=== PATIENT | female | born 1970 | race Caucasian/White ===

== ENCOUNTER 2020-10-30 19:38 | Inpatient (IN) | payer MEDICARE ==
[~2020-10-30] VITALS: Ht 149.9 cm; Wt 68.4 kg
[2020-10-30] MEDS ORDERED: MAALOX 30 ML SUSP *UDC PO PRN (21:10)
[2020-10-30] MEDS ORDERED: MOM 30ML SUSPENSION UDC PO PRN (21:10)
--- NOTE | 2020-10-30 21:21 | CR.PDOC ---
General Date of Consultation: Oct 30, 2020 Consultation REASON FOR CONSULTATION/CHIEF COMPLAINT: Transfer from [facility] - Left ankle bimalleolar fracture dislocation HISTORY OF PRESENT ILLNESS: pt was hiking a trail around 1000 this am. Slipped off a log and fell to the ground. Pain and inability to WB. Obvious deformity to ankle with no broken skin. Reduced under concious sedation and splinted around 1600. Transfer to [facility] accepted. Pt arrived around 194. Seen in ED for evaluation. Denies any tingling, numbness or paresthesias. Pain well controlled. ALLERGIES: Please see below. HOME MEDICATIONS: Please see below. PAST MEDICAL HISTORY: 1. Osteopenia 2. HTN 3. R clavicle # non op REVIEW OF SYSTEMS: CONSTITUTIONAL: Denies any complaints or concerns, Aside from ankle injury PHYSICAL EXAMINATION: VITAL SIGNS: Please see below. GENERAL APPEARANCE: A&O, NAD EXTREMITIES: Splinted L ankle and elevated on pillow NEUROLOGICAL: moving left forefoot and toes. sensation grossly intact to 1st webspace Vascular: palpable Left DP pulse, cap refill less than 3 secs LABORATORY DATA: Please see below. Xray imaging: Pre and post reduction films on disc independently reviewed by myself, today. Bimalleolar fracture dislocation with adequate reduction and splinting. ASSESSMENT/PLAN: 1. Patient has an unstable bimalleolar fracture dislocation of the left ankle, appropriately reduced and splinted. Will require ORIF. Discussed risks and benefits of the surgery at length, as documented on the signed informed consent. Dr. Zambrano, who is professional development director this weekend is aware of the patient and will plan for ORIF L ankle tomorrow. Pt will be NPO at midnight. Hospitalist service consulted for admission and management, by ED. Consent for surgery left at OR desk. Pt aware and in agreement with treatment plan. Vital Signs/I&O Vital Signs Date Time Temp Pulse Resp B/P (MAP) Pulse Ox O2 Delivery O2 Flow Rate FiO2 10/30/20 20:17 98.0 DALE PONCE MD Oct 30, 2020 21:21
--- NOTE | 2020-10-30 21:21 | HPEPDOC ---
[facility] Medical History & Physical Date of Admission Oct 30, 2020 Date of Service: Oct 30, 2020 Other Provider Attending Physician: INO AGUILERA MD History and Physical TIME OF SERVICE: 850pm CHIEF COMPLAINT: left ankle pain HISTORY OF PRESENT ILLNESS: , a 50 yr old F, had been backpacking in the area. Earlier on today she had a fall off of a log onto her left foot and landed on a patch of dirt that was soft. As soon as she landed heard a snap and knew that her ankle was broken; she initially presented to [facility] w c/o left ankle pain, was diagnosed with a left bimalleolar fracture and was given pain meds prior to having cast placed around her left ankle. REVIEW OF SYSTEMS: see HPI PAST MEDICAL/ SURGICAL HISTORY: Essential HTN, osteoporosis, menopause (47 yrs of age) SOCIAL HISTORY: she doesnt smoke, drinks alcohol about 3 times a week and doesnt use recreational drugs, she lives in [place] FAMILY HISTORY: HTN, DM, her mother had osteoporosis ALLERGIES: Please see below. HOME MEDICATIONS: Please see below. PHYSICAL EXAMINATION: Vital Signs Date Time Temp Pulse Resp B/P (MAP) Pulse Ox O2 Delivery O2 Flow Rate FiO2 10/30/20 20:17 98.0 . GENERAL APPEARANCE: well-nourished and developed/ NAD HEENT: EOMI/ MMM&P CARDIOVASCULAR: radial pulses intact MUSCULOSKELETAL: NCAT / left ankle wrapped in cast/ sensation in toes on left foot intact INTEGUMENT: toes at the left foot are pink and well perfused NEUROLOGICAL: CN 2-12 grossly intact / speech not dysarthric PSYCHIATRIC: A&Ox 3/ able to understand and follow all commands LABORATORY DATA: pending IMAGING: Xray of left foot showed bi-malleolar fx MICROBIOLOGY: COVID pending ASSESSMENT: is a 50 yr old w HTN, and osteoporosis who was transferred from [facility] for surgical management of a left bi-malleolar fx. PLAN: 1 Left Bimalleolar fracture 2/2 mechanical fall Her RCRI score is 0 therefore she will not need any additional testing prior to proceeding with surgery. Plan: admit to [facility] / NPO after midnight w IVF for surgery possibly tomorrow / Ortho consult (Dr. Zambrano) / pain control w morphine 2 Osteoporosis She begun Prolia in December of last year Plan: Ca++ w vitamin D/ c/w Prolia as scheduled 3 Essential HTN Plan: hold lisinopril to reduce the risk of jefferson-operative hypotension (this medication can be resumed on POD #) /in the meanwhile we will start low dose amlodipine for her HTN DVT Px w SCDs Dispo: ARU vs Rehab facility in [place] after at least 2 midnights stay A-FIB/CHADSVASC A-FIB History Current/History of A-Fib/PAF?: No Current PO Anticoag Therapy: No INO AGUILERA MD Oct 30, 2020 21:21
[2020-10-30] MEDS ORDERED: OYST1TAB PO (21:39)
[2020-10-30] MEDS ORDERED: D31000TA2 PO (21:39)
[2020-10-30] MEDS ORDERED: ALEN70TA82 PO (21:39)
[2020-10-30] MEDS ORDERED: LISI10TA22 PO (21:39)
[2020-10-30 22:04] LABS: HEMATOCRIT 36.7 % (36.0-47.0); HEMOGLOBIN 11.9 g/dl (12.0-15.5); MEAN CORPUSCULAR HEMOGLOBIN 29.6 pg (27.0-33.0); MEAN CORPUSCULAR HGB CONC 32.4 g/dl (32.0-36.5); MEAN CORPUSCULAR VOLUME 91.3 fl (80.0-96.0); PLATELET COUNT, AUTOMATED 233 10^3/uL (150-450); RED BLOOD COUNT 4.02 10^6/uL (4.00-5.40); WHITE BLOOD COUNT 8.1 10^3/uL (4.0-10.0)
[2020-10-30] MEDS: ACETAMINOPHEN TAB 650MG DOSE (2X325MG) PO PRN (22:16)
[2020-10-30 22:25] LABS: BLOOD UREA NITROGEN 13 MG/DL (7-18); CALCIUM LEVEL 8.5 MG/DL (8.5-10.1); CARBON DIOXIDE LEVEL 25 MEQ/L (21-32); CHLORIDE LEVEL 108 MEQ/L (98-107); CREATININE FOR GFR 0.89 MG/DL (0.55-1.30); GLOMERULAR FILTRATION RATE > 60.0 (>51); GLUCOSE, FASTING 123 MG/DL (70-100); POTASSIUM SERUM 3.6 MEQ/L (3.5-5.1); SODIUM LEVEL 141 MEQ/L (136-145)
[2020-10-30 22:55] VITALS: BP 114/72
[2020-10-30] MEDS: MORPHINE 2 MG/ML 1ML VIAL (J2270) IV PRN (23:25)
[2020-10-31] MEDS ORDERED: D5W/0.9% SODIUM CHLORIDE 1,000 ML IV SCH
[2020-10-31] MEDS: MORPHINE 2 MG/ML 1ML VIAL (J2270) IV PRN (01:34)
[2020-10-31 06:00] VITALS: BP 101/55
[2020-10-31 07:22] LABS: HEMATOCRIT 36.9 % (36.0-47.0); HEMOGLOBIN 11.9 g/dl (12.0-15.5); MEAN CORPUSCULAR HEMOGLOBIN 30.1 pg (27.0-33.0); MEAN CORPUSCULAR HGB CONC 32.2 g/dl (32.0-36.5); MEAN CORPUSCULAR VOLUME 93.2 fl (80.0-96.0); PLATELET COUNT, AUTOMATED 207 10^3/uL (150-450); RED BLOOD COUNT 3.96 10^6/uL (4.00-5.40)
[2020-10-31 07:50] LABS: BLOOD UREA NITROGEN 12 MG/DL (7-18); CALCIUM LEVEL 8.2 MG/DL (8.5-10.1); CARBON DIOXIDE LEVEL 29 MEQ/L (21-32); CHLORIDE LEVEL 110 MEQ/L (98-107); CREATININE FOR GFR 0.69 MG/DL (0.55-1.30); GLOMERULAR FILTRATION RATE > 60.0 (>51); GLUCOSE, FASTING 88 MG/DL (70-100); POTASSIUM SERUM 4.2 MEQ/L (3.5-5.1); SODIUM LEVEL 142 MEQ/L (136-145)
[2020-10-31] MEDS: ACETAMINOPHEN TAB 650MG DOSE (2X325MG) PO PRN ×3 (08:43→22:08)
[2020-10-31] MEDS: CALCIUM/VITAMIN D 500 MG TAB PO SCH (08:43)
[2020-10-31 14:00] VITALS: BP 112/76
--- NOTE | 2020-10-31 14:03 | IPNPDOC ---
Text Note Date of Service The patient was seen on 10/31/20. NOTE Hospitalist Progress Note Subjective: Patient is lying in a hospital bed and landed the room. She is awake and alert, she is a good historian. Her leg is propped up and still in the splint. It appears that the OR was full today, therefore it sounds like the plan is to take her to the OR tomorrow instead. She therefore has a regular diet for today, and will be made nothing by mouth after midnight. She does not have any other questions, and the remainder of her review of systems negative. Objective: General: Awake, alert, oriented 3. Not in any acute distress. HEENT: Head normocephalic, atraumatic, sclera are nonicteric. Hearing is grossly intact to conversation. Respiratory: Clear to auscultation bilaterally with no wheezes, rales, or rhonchi. Cardiovascular: Regular rate and rhythm, with no rubs, gallops, or murmur. Abdomen: Soft, nontender, nondistended, no hepatosplenomegaly appreciated. Bowel sounds present. Extremities: 2+ pulses in the radial and dorsalis pedis bilaterally. No evidence of clubbing or cyanosis. Assessment: Left bimalleolar fracture secondary to mechanical fall Osteoporosis Essential hypertension DVT prophylaxis with sequentials Plan: Management of left ankle fracture per recommendations from orthopedic surgery team. It sounds as though she'll be going to the OR tomorrow depending on their schedule. Otherwise, home dose of KAROL inhibitor is being held and hypertension as being controlled with amlodipine. May resume KAROL inhibitor (and d/c amlodipine) after surgery when she is hemodynamically stable Dispo: ARU vs Rehab facililty after d/c is likely VS,Cooper, I+O VS, Cooper, I+O Laboratory Tests 10/30/20 21:50 10/31/20 06:44 Vital Signs Date Time Temp Pulse Resp B/P (MAP) Pulse Ox O2 Delivery O2 Flow Rate FiO2 10/31/20 06:00 98.3 60 18 101/55 (70) 98 Room Air I&O- Last 24 Hours up to 6 AM 10/31/20 06:00 Intake Total 240 ml Output Total 500 ml Balance -260 ml JESSICA TONEY DO Oct 31, 2020 14:03
--- NOTE | 2020-10-31 14:40 | REP ---
INDICATION: previous L ankle XR cancelled - NOT ACCEPTABLE. COMPARISON: No comparison radiographs are available.. TECHNIQUE: Four views of the left ankle are obtained through overlying cast material. FINDINGS: Four views of the left ankle obtained through overlying cast material demonstrate a transversely oriented somewhat diastatic medial malleolar fracture and an obliquely oriented minimally disc fragments fracture of the distal fibular metaphysis. Ankle mortise is widened medially. No other fracture seen. IMPRESSION: Bimalleolar fracture at the ankle with some medial widening of the ankle mortise as above. X-rays through overlying cast material. No comparison studies available. <Electronically signed by Herminio Sharma > 10/31/20 [id number]
[2020-10-31 21:34] LABS: INR 0.93; PROTHROMBIN TIME 12.7 SECONDS (12.5-14.3)
[2020-10-31 22:00] VITALS: BP 115/73
[2020-11-01] VITALS (8 sets, daily range): BP systolic 100–145; BP diastolic 63–81
[2020-11-01] MEDS: D5W/0.9% SODIUM CHLORIDE 1,000 ML IV SCH ×2 (00:08→17:59)
[2020-11-01] MEDS ORDERED: RAMELTEON 8 MG TAB (ROZEREM) PO PRN (04:00)
[2020-11-01] MEDS: ACETAMINOPHEN TAB 650MG DOSE (2X325MG) PO PRN ×2 (04:24→20:20)
[2020-11-01] MEDS ORDERED: fentaNYL 100 MCG/2 ML INJECTION (J3010) IV PRN ×2 (07:01→12:40)
[2020-11-01] MEDS ORDERED: MIDAZOLAM INJ 2MG/2ML VIAL (J2250 PER 1MG) IV PRN (07:01)
[2020-11-01] MEDS ORDERED: ROPIvacaine 0.5% 30ML INJECTION (J2795 PER 1MG) XX ONE (08:15)
[2020-11-01] MEDS ORDERED: dexameTHASONE 10MG/1ML VIAL PRES.FREE (J1100 PER 1MG) XX ONE (08:15)
[2020-11-01] MEDS ORDERED: LIDOCAINE 1% MDV 20ML VIAL XX ONE (08:15)
[2020-11-01] MEDS: CALCIUM/VITAMIN D 500 MG TAB PO SCH (09:00)
[2020-11-01] MEDS ORDERED: ceFAZolin 2 GM/D5W 50 ML IV BAG (J0690 PER 500MG) As Ordered ONE (09:39)
[2020-11-01] MEDS ORDERED: HYDROmorphone HCL 2 MG/ML 1ML VIAL (J1170) As Ordered ONE (09:57)
[2020-11-01] MEDS ORDERED: MIDAZOLAM INJ 2MG/2ML VIAL (J2250 PER 1MG) As Ordered ONE (09:57)
[2020-11-01] MEDS ORDERED: fentaNYL 100 MCG/2 ML INJECTION (J3010) As Ordered ONE (09:57)
[2020-11-01] MEDS ORDERED: dexameTHASONE 4 MG/ML 1ML VIAL (J1100 PER 1MG) As Ordered ONE (09:59)
[2020-11-01] MEDS ORDERED: ONDANSETRON 4MG/2ML VIAL As Ordered ONE (09:59)
[2020-11-01] MEDS ORDERED: ACETAMINOPHEN 1000MG 100ML IV BTL (OFIRMEV) (J0131 PER 10MG) As Ordered ONE (09:59)
[2020-11-01] MEDS ORDERED: ROCURONIUM BROMIDE 50 MG/5 ML VIAL As Ordered ONE ×2 (09:59→11:03)
[2020-11-01] MEDS ORDERED: propofoL 200 MG/20 ML VIAL As Ordered ONE (09:59)
[2020-11-01] MEDS ORDERED: LIDOCAINE 2% 100MG/5ML SDV (FOR ANES.) As Ordered ONE (09:59)
[2020-11-01] MEDS ORDERED: SUGAMMADEX SODIUM 500 MG/5 ML VIAL (BRIDION) As Ordered ONE ×2 (10:10→10:26)
[2020-11-01] MEDS ORDERED: ePHEDrine SULFATE 25 MG/5 ML(5MG/ML) SYRINGE As Ordered ONE (10:20)
[2020-11-01] MEDS ORDERED: ONDANSETRON 4MG/2ML VIAL IV PRN (12:40)
[2020-11-01] MEDS ORDERED: HYDROMORPHONE HCL 0.5 MG/ 0.5 ML SYRINGE (J1170 PER 1) IV PRN (12:40)
[2020-11-01] MEDS ORDERED: oxyCODONE 5MG TAB PO PRN (12:40)
[2020-11-01] MEDS ORDERED: LR 1,000 ML IV SCH (12:40)
--- NOTE | 2020-11-01 12:54 | REP ---
INDICATION: L ankle fracture. COMPARISON: Comparison ankle radiographs are from October 31, 2020. Bimalleolar left ankle fracture.. TECHNIQUE: Eleven views. 159.5 seconds of fluoroscopy time is reported. FINDINGS: A sequence of 11 last image hold fluoroscopically obtained spot radiographs of the ankle document open reduction internal fixation of bimalleolar fracture. IMPRESSION: Procedural imaging. <Electronically signed by Herminio Sharma > 11/01/20 1420
--- NOTE | 2020-11-01 14:31 | RO ---
OPERATIVE NOTE DATE OF OPERATION: 11/01/2020 TIME: 10 a.m. PREOPERATIVE DIAGNOSIS: Left bimalleolar ankle fracture, closed with syndesmotic disruption. POSTOPERATIVE DIAGNOSIS: Left bimalleolar ankle fracture, closed with syndesmotic disruption. NAME OF OPERATION: Left ankle open reduction and internal fixation with syndesmotic fixation. SURGEON: Ren Zambrano MD COLOR ADVISER: None. SUPERVISING ATTENDING: Ren Zambrano MD FINDINGS: Left ankle fracture which is bimalleolar in nature closed with sydesmotic disruption. INDICATIONS: This was a 50-year-old female who was in the local area [place]. She is originally from [place]. She sustained a ground level fall and a left ankle fracture dislocation which was closed. She had a left closed bimalleolar ankle fracture involving the medial malleolus as well as the distal fibula with syndesmotic disruption. She presented to the [facility]. She was a transfer from [place], [place]. She was indicated for a left ankle open reduction and internal fixation with syndesmotic fixation. She underwent the aforementioned surgery. ANESTHESIA: GETA. TOURNIQUET TIME: 103 minutes. ESTIMATED BLOOD LOSS: 75 mL. IV FLUIDS: Please see anesthesia report. IV ANTIBIOTICS: Please see anesthesia report. IMPLANTS: Synthes. CULTURES: None. SPECIMENS: None. DESCRIPTION OF PROCEDURE: The patient was met in the preoperative holding area where the patient's operative extremity was signed, the patient's consent was confirmed to be correct, and the patient's identity was confirmed to be correct. The patient was then transported to the operating theater where she was placed supine on a regular surgical flat-top bed with the radiolucent extension. A safety strap secured the patient to the bed.. All bony prominences were well padded. The contralateral lower extremity had SCDs placed. A timeout was called which confirmed the correct patient, correct operative extremity and correct consent. All staff were in agreement. The patient was then draped in the usual sterile fashion. Prior to the case, we obtained fluoroscopic imaging to ensure correct surgical incision overlying the distal fibular fracture. We then inflated the tourniquet to 250 mmHg. We began the procedure by incising the skin overlying the distal fibula using a scalpel. After incising the skin, I used careful dissection in order to ensure we did not damage the superficial peroneal nerve. I then dissected down to the periosteum of the distal fibula and elevated this with a scalpel. I identified the fracture which was then cleaned using a scalpel and a hemostat. After we cleaned the fracture, we were able to provide provisional reduction using a [id number] bone-reducing clamp. I then placed two 2.7 mm lag screws by technique orthogonal to the fracture site. We then removed the clamp and placed a 4-hole distal fibular locking plate in position. We ensured with fluoroscopy that now we were satisfied with our fracture reduction and provisional fixation. I then used a cortical screw in order to suck the plate to the bone distally followed by three additional locking screws. In total we had three locking and one cortical screw in the distal fibular plate. I then turned my attention to the proximal aspect of the plate and placed three 3.5 mm cortical screws in order to secure the plate to the bone. The plate would be used in neutralization mode in order to protect the lag screws which were providing absolute stability across the fracture. We then turned our attention to the medial malleolus and made a one inch incision using a scalpel, identified a traversing vein which was then protected. I used a scalpel to elevate the periosteum overlying the fracture. I identified the medial malleolar fracture which was then cleaned with a scalpel and hemostat. After the fracture was cleaned, it was then reduced using [id number] bone-reducing clamp. Using fluoroscopy, I placed two threaded guide pins orthogonal to the fracture site starting at the tip of the medial malleolus and orthogonal to the fracture site. I checked fluoroscopy in AP and lateral views to make sure that I was satisfied with the placement of the guide pins. I then predrilled the posterior of the two parallel threaded guide pins. I placed a 50 mm partially threaded 4.0 mm cancellous screw. I then placed a second anterior rotational screw anterior to the first yet parallel on the lateral views and superimposed on the AP view. I then took fluoroscopy to ensure that I was satisfied with the medial malleolar fracture reduction as well as the two screw implants. I then turned my attention to the AP view of the fracture and turned our attention to the syndesmosis which was disrupted with a stress view. We then placed a suspensory fixation using TightRope suspension. I placed a threaded guide pin in the most distal of the 4-hole plate. After placing the set screw which was tetracortical in nature through both the fibula and tibia, I ensured with fluoroscopy that I was satisfied with its position. We then overdrilled the threaded guide pin, placed an Arthrex TightRope button which was tetracortical in nature and was seated nicely on the medial aspect of the tibia. I then tightened the TightRope with manual compression across the tibiofibular joint/syndesmosis. I tightened this appropriately which reduced our syndesmosis. At this point in time, I tied a safety knot over the TightRope suspension. The loose sutures were then cut. At this point in time, I took final fluoroscopic imaging of the patient's left ankle to include an AP, mortise and lateral view of the ankle. I was satisfied with the implant placement as well as the fracture reduction. I copiously irrigated both surgical sites. I closed the periosteum over the distal fibular plate using 2-0 Vicryl and closed the dermal layer using 2-0 Vicryl. I closed the skin using a running 3-0 nylon stitch. I closed the medial malleolar incision using 2-0 for the dermal layer and a running 3-0 nylon stitch. I then placed Xeroform, 4x4s, Webril and the patient's left ankle was placed in a well-padded L and U splint. The patient was extubated without complication and transported to the postanesthesia care unit. The patient will be nonweightbearing to the left lower extremity for 6-8 weeks. She will return to our clinic or an orthopedic clinic in [place] in two weeks for a postoperative wound check as well as L and U splint removal. She will be transitioned to a Cam boot at that point in time and remain nonweightbearing for an additional 4-6 weeks. She will be given postoperative pain medication by her hospitalist team. She will follow the left ankle open reduction and internal fixation rehabilitative protocol. The patient's family will be notified of the aforementioned proceedings.
[2020-11-01] MEDS ORDERED: traMADol 50 MG TAB PO PRN (17:45)
--- NOTE | 2020-11-01 17:48 | IPNPDOC ---
Text Note Date of Service The patient was seen on 11/01/20. NOTE Hospitalist Progress Note Subjective: Patient has now returned from the OR. Her foot is splinted and wrapped. She has no pain at this time, but the local anesthetic is still in effect. She has questions about PT & follow-up, but otherwise no other concerns at this time. Objective: General: Awake, alert, oriented 3. Not in any acute distress. HEENT: Head normocephalic, atraumatic, sclera are nonicteric. Hearing is grossly intact to conversation. Respiratory: Clear to auscultation bilaterally with no wheezes, rales, or rhon chi. Cardiovascular: Regular rate and rhythm, with no rubs, gallops, or murmur. Abdomen: Soft, nontender, nondistended, no hepatosplenomegaly appreciated. Bowel sounds present. Extremities: 2+ pulses in the radial. No evidence of clubbing or cyanosis. Left leg splinted and bandaged. Assessment: Left bimalleolar fracture secondary to mechanical fall Osteoporosis Essential hypertension DVT prophylaxis with sequentials Plan: - Resume home dose of KAROL inhibitor - Start regular diet - Pain control with tylenol (mild), tramadol (moderate), morphine (severe) Dispo: Home with follow-up per recommendations from Ortho Team (See end of Op note) VS,Fishbone, I+O VS, Fishbone, I+O Vital Signs Date Time Temp Pulse Resp B/P (MAP) Pulse Ox O2 Delivery O2 Flow Rate FiO2 11/01/20 16:30 98.3 102 18 145/80 (101) 95 Room Air 11/01/20 14:30 2.0 I&O- Last 24 Hours up to 6 AM 11/01/20 06:00 Intake Total 2400 ml Output Total 0 ml Balance 2400 ml JESSICA TONEY DO Nov 01, 2020 17:48
[2020-11-02 02:28] VITALS: BP 118/74
[2020-11-02 06:00] VITALS: BP 118/70
[2020-11-02] MEDS ORDERED: ASPIRIN 81MG ENTERIC TABLET PO SCH (09:00)
[2020-11-02 09:10] VITALS: BP 116/72
[2020-11-02] MEDS: CALCIUM/VITAMIN D 500 MG TAB PO SCH (09:10)
[2020-11-02] MEDS ORDERED: ASPI-551 PO (11:16)
[2020-11-02] MEDS ORDERED: TRAM50TA2 PO (11:16)
--- NOTE | 2020-11-02 11:33 | DS.PDOC ---
Discharge Summary General Date of Admission Oct 30, 2020 at 21:06 Date of Discharge 11/02/2020 Discharge Summary ATTENDING AT TIME OF DISCHARGE: Dr. Jessica Toney, DO DISCHARGE DIAGNOS(E)S: Left bimalleolar fracture secondary to mechanical fall Osteoporosis Essential hypertension Class I [place] HPI & HOSPITAL COURSE: This is a 50-year-old female who is of hiking in the [facility] and fell and broke her ankle. She was transferred to [facility] in [place], [place] from [facility] (in [place], [place]) for evaluation and treatment by the orthopedic surgery service due to left bimalleolar fracture secondary to mechanical fall. On 11/01/2020 she had a left ankle open reduction and internal fixation with syndesmotic fixation. Today is postop day 1, she has been seen and evaluated by physical therapy and they feel that she is safe and able to negotiate crutches, and this medically stable and ready for discharge at this time PHYSICAL EXAMINATION ON DISCHARGE: GENERAL: Awake, alert, oriented 3. CARDIOVASCULAR EXAMINATION: Regular rate and rhythm, with no rubs, gallops, or murmur. RESPIRATORY EXAMINATION: Clear to auscultation bilaterally with no wheezes, rales, or rhonchi. ABDOMINAL EXAMINATION: Soft, nontender, nondistended. Bowel sounds present. EXTREMITIES: No clubbing or edema noted. 2+ pulses in the radial bilaterally. Splint and bandage applied to left lower extremity. DISPOSITION: Home DISCHARGE INSTRUCTIONS: Follow-up with orthopedics clinic in 2 weeks. Also recommend following up with primary care provider within 7-14 days as well. Also recommend following up with physical therapy for rehabilitation. If symptoms return, or if you experience worsening of your symptoms, please call your doctor or return to the emergency department. Discharge instructions per ortho: The patient will be nonweightbearing to the left lower extremity for 6-8 weeks. She will return to our clinic or an orthopedic clinic in [place] in two weeks for a postoperative wound check as well as L and U splint removal. She will be transitioned to a Cam boot at that point in time and remain nonweightbearing for an additional 4-6 weeks. She will be given postoperative pain medication by her hospitalist team. She will follow the left ankle open reduction and internal fixation rehabilitative protocol. DISCHARGE MEDICATIONS: Continue taking from home: Alendronate 70 mg by mouth every week Calcium carbonate 500 mg by mouth twice a day Vitamin D3 2000 units by mouth daily Lisinopril 10 mg by mouth daily New Medications: Aspirin 81 mg by mouth daily Tramadol 50 mg by mouth every 6 hours as needed for pain Vital Signs/I&Os Vital Signs Date Time Temp Pulse Resp B/P (MAP) Pulse Ox O2 Delivery O2 Flow Rate FiO2 11/02/20 09:10 116/72 11/02/20 06:00 98.2 61 16 98 Room Air 11/01/20 14:30 2.0 I&O- Last 24 Hours up to 6 AM 11/02/20 06:00 Intake Total 4515 ml Output Total 1125 ml Balance 3390 ml Discharge Medications Scheduled Alendronate Sodium (Alendronate Sodium) 70 Mg Tablet, 70 MG PO QWEEK, (Reported) monday Aspirin (Aspirin EC) 81 Mg Tablet.dr, 81 MG PO DAILY Calcium Carbonate (Calcium) 500 Mg Tablet, 500 MG PO BID, (Reported) Cholecalciferol (Vitamin D3) (Vitamin D3) 1,000 Unit Tablet, 2,000 UNITS PO DAILY, (Reported) Lisinopril (Lisinopril) 10 Mg Tablet, 10 MG PO DAILY, (Reported) Scheduled PRN Tramadol HCl (Tramadol HCl) 50 Mg Tablet, 50 MG PO Q6HP PRN for MODERATE PAIN (PS 5-7) Allergies Coded Allergies: No Known Allergies (Unverified , 10/30/20) JESSICA TONEY DO Nov 02, 2020 11:33
[2020-11-04] MEDS ORDERED: ALENDRONATE 35MG TABLET PO SCH (06:00)
== END 2020-11-02 14:35 | disposition home or self-care (01) | DRG 494 ==
LOC: M ED 19:38 → M ED INP 21:06 → ENRESERV 22:08 → M MS5PR 22:51
PROVIDERS: ADMIT Internal Medicine; ATTEND Neuromusculoskeletal Medicine & OMM
PROC: 0QSH04Z Reposition Left Tibia with Internal Fixation Device, Open Approach (ICD-10-PCS; 2020-11-01)
PROC: 0QSK04Z Reposition Left Fibula with Internal Fixation Device, Open Approach (ICD-10-PCS; principal; 2020-11-01 08:30)
DX: S82.55XA Nondisplaced fracture of medial malleolus of left tibia, initial encounter for closed fracture (principal); S82.845A Nondisplaced bimalleolar fracture of left lower leg, initial encounter for closed fracture; I10 Essential (primary) hypertension; M81.0 Age-related osteoporosis without current pathological fracture; E66.9 Obesity, unspecified; W17.89XA Other fall from one level to another, initial encounter; Y93.01 Activity, walking, marching and hiking; Z79.899 Other long term (current) drug therapy; Z68.30 Body mass index [BMI] 30.0-30.9, adult